=== PATIENT | female | born 1940 | race Caucasian/White ===

== ENCOUNTER → 2016-06-09 | Outpatient (CLI) | payer MEDICARE, OTHER ==
[2016-06-09 14:59] LABS: BASOPHIL % 0.4 %; EOSINOPHIL # 0.1 K/uL (0.0-0.5); EOSINOPHIL % 1.3 %; HEMOGLOBIN 11.2 g/dL (10.0-15.0); IMMATURE GRANULOCYTE % 0.2 %; LYMPHOCYTE # 3.4 K/uL (0.8-4.0); LYMPHOCYTE % 35.6 %; MCH 24.4 pg (27.0-34.0); MCHC 31.1 gm/dL (32.0-36.5); MCV 78.4 fl (83.0-98.0); MONOCYTE # 0.7 K/uL (0.0-1.0); MONOCYTE % 7.3 %; NEUTROPHIL # (ANC) 5.3 K/uL (1.8-7.8); NEUTROPHIL % 55.2 %; NRBC % 0 /100WBC (0-0.00); PLATELET COUNT 507 K/uL (150-450); RBC 4.59 M/uL (3.50-5.50); RDW-CV 25.2 % (11.9-14.6); WBC 9.6 K/uL (4.0-11.0)
[2016-06-09 15:12] LABS: ALBUMIN 2.7 gm/dL (3.5-5.0); ALK PHOS 139 IU/L (33-138); ALT 49 IU/L (12-78); ANION GAP 16.2 (10.0-19.0); AST 48 IU/L (10-40); BLOOD UREA NITROGEN 29 mg/dL (6-24); CALCIUM 8.7 mg/dL (8.5-10.5); CHLORIDE 105 mMol/L (96-110); CO2 23 mMol/L (22-32); CREATININE 0.5 mg/dL (0.5-1.1); ESTIMATED GFR (MDRD EQUATION) > 60; MAGNESIUM 2.2 mg/dL (1.3-2.6); PHOSPHORUS 4.2 mg/dL (2.5-4.9); POTASSIUM 5.2 mMol/L (3.7-5.1); SODIUM 139 mMol/L (135-145); TOTAL BILIRUBIN 0.5 mg/dL (0.0-1.5); TOTAL PROTEIN 6.9 g/dL (6.0-8.4)
== END | disposition disaster alternative care site (69) ==
LOC: LHHCN 14:49
PROVIDERS: Surgery
DX: Z45.2 Encounter for adjustment and management of vascular access device (principal); C18.9 Malignant neoplasm of colon, unspecified; I48.91 Unspecified atrial fibrillation; K21.9 Gastro-esophageal reflux disease without esophagitis; Z95.810 Presence of automatic (implantable) cardiac defibrillator